=== PATIENT | male | born 1950 | race Caucasian/White ===

== ENCOUNTER 2018-07-08 18:20 | Emergency (ER) | payer OTHER ==
[~2018-07-08] VITALS: Ht 162.6 cm; Wt 69.4 kg
[2018-07-08 18:28] VITALS: Ht 162.6 cm; Wt 69.4 kg
[2018-07-08 19:34] VITALS: BP 137/82
== END 2018-07-08 19:34 | disposition home or self-care (01) ==
LOC: ED 18:20
DX: H11.31 Conjunctival hemorrhage, right eye (principal); I10 Essential (primary) hypertension